=== PATIENT | male | born 1945 | race Caucasian/White ===

== ENCOUNTER 2019-07-31 12:15 | Inpatient (IN) | payer OTHER, SELFPAY ==
[2019-07-29 12:38] VITALS: BMI 29.7
[2019-07-31] VITALS (14 sets, daily range): BP systolic 126–166; BP diastolic 66–95; PULSE 72–94; RESP 8–99; TEMP 36.1–37.3; O2SAT 93–100; BMI 29.5
--- NOTE | 2019-07-31 | DI.RAD.S_ITS ---
PROCEDURE: XR LUMBAR SPINE 2-3V INDICATIONS: L3-4 HEMILAMINECTOMY, L4-L5 TLIF W/ INSTRUMENTATNION TECHNIQUE: 3 views of the lumbar spine were acquired. COMPARISON: [facility], MR, MR LUMBAR SPINE WITHOUT CONTRAST, 07/06/2019, 15:42. FINDINGS: Intraoperative images demonstrating posterior fixation at L4-5. There is trace anterolisthesis of L3 on L4 as well as trace retrolisthesis of L5 on S1. Hardware appears intact. IMPRESSION: Intraoperative L4-5 fusion as above. Dictated by: Rica Martinez M.D. on 07/31/2019 at 17:09 Approved by: Rica Martinez M.D. on 07/31/2019 at 17:09
[2019-07-31] MEDS: LACTATED RINGERS 1,000 ML 42 ML IV ×2 (13:08→16:59)
--- NOTE | 2019-07-31 13:08 | PM.PREOP ---
Pre-operative Note Interval Note History & Physical reviewed/Exam performed by Physician: Yes Changes to H&P: No
[2019-07-31] MEDS: CEFAZOLIN 2 GM/100 ML FROZ.PIGGY IV ×2 (14:20→18:38)
[2019-07-31] MEDS: BUPIVACAINE 0.25% W/ EPI 30 ML VIAL INJ (15:00)
[2019-07-31] MEDS: BUPIVACAINE LIPOSOME 266 MG/20 ML VIAL INJ (15:01)
--- NOTE | 2019-07-31 15:04 | SUR.OPER ---
Prone on spine table, head in foam head support, padded chest and pelvic supports, gel pad at knees, lower legs supported by pillows; nipples, genitalia and toes free of pressure, arms secured on foam padded arm boards at <90 degrees abduction. Tape over blanket at thigh secured to table.
--- NOTE | 2019-07-31 16:57 | P.OP_ITS ---
Operative Date/Time/Diagnoses Date of procedure: 07/31/19 Time of procedure: 14:18 Pre-op diagnosis: 1. L4-5 spinal stenosis 2. L4-5 synvial cyst 3. L3-4 spinal stenosis Post-op diagnosis: same Procedure & Clinicians Procedure: 1. L4-5 Postero-lateral and posterior interbody fusion 2. L4-5 interbody cage placement. 3. L4-5 decompressive laminectomy with bilateral facetecomies 4. L4-5 Posterior non-segmental instrumentation 5. L3-4 hemilaminectomy 6. [place] of bone marrow from iliac crest 7. Utilization of microsurgical technique and operating microscope Same procedure as scheduled: Yes Indications: Patient has been having chronic back pain and worsening lumbar radiculopathy. Patient failed multiple conservative management with worsening pain weakness and numbness in his lower extremity. Patient has been having difficulty performing activity of daily living. After discussing risks benefits of treatment options, patient elected proceed with surgery. Surgeon: Sekou Guzmán [employer] Professor: Cindy Jimenez Click Yes if Unassisted: No Anesthesia Type: General Operative Notes Closure Type: primary Specimen(s): none sent Prosthetic devices, grafts, tissues, transplants, or devices: GLobus revolve screws, Rise cages Applied: catheter Estimated Blood Loss (mL): 50 Blood products transfused: none Procedure in detail: Patient was seen in the preoperative area. Risks and benefits of the surgery was discussed with the patient. Informed consent was obtained from the patient and placed in the chart. Surgical site was marked. Patient was taken to the operative room. General anesthesia was administered. Prophylactic antibiotic was given to the patient less than 30 min before the incision was made. Patient was placed into a prone position on the Bam table. Patient's back was then prepped and draped in the sterile fashion. Time- out was performed at this time. Using AP and lateral C-arm imaging the interval between L3-4 L4-5 was identified and marked on patient's back. A 2 inch incision 2 in from midline was made on the right side first. The fascia was incised in line with skin incision. Globus MARS retractors was placed inside the incision and docked onto the L4 lamina. Using microsurgical technique and operating microscope, a L4 laminectomy and L4- 5 facetectomy was performed using a Kerrison rongeur. A large synovial cyst was identified under the ligamentum flavum. The cyst was excised in its entirety using a Kerrison rongeur. The cyst was found to be filled with synovial fluid with no any signs of infection or malignant origin. Laminectomy and total facetectomy was required to fully excise the cyst. After the laminectomy facetectomy and cyst excision the L4-5 level was found to be grossly unstable requiring a fusion procedure at the same time. The disc space at L4-5 was identified. And a total diskectomy was performed at L4-5 level. The endplates were decorticated using a rasp and shaver. The total diskectomy and decortication was performed at L4-5 level in order to to accomplish a L4-5 fusion. The local bone from the laminectomy and facetectomy was saved for local bone grafting. After the total diskectomy and decortication was completed, BIO4 bone graft material was combined with local bone that was harvested earlier. At this time, a separate skin is incision was made over the iliac crest. A Jamshidi needle was inserted into the iliac crest through a separate skin incision. 5 cc of bone marrow aspiration was obtained through the separate skin incision using a Jamshidi needle from the iliac crest. The bone marrow aspiration was combined with local bone and the BIO4 bone grafting material. The bone grafting material was placed into the L4-5 interbody space along with a expandable cage. The cage was expanded to its maximum height using the torque limiting screwdriver. At this time the MARS retractor was redirected over the L3 lamina. Using microsurgical technique and operating microscope, a L3-4 heminectomy was performed using the Kerrison rongeur. The ligamentum flavum was also resected at the side of the hemilaminectomy for further decompression of the epidural space. At this time a mirror image incision was made on the left side. The fascia was incised in line with the skin incision. Globus MARS retractor was inserted and docked onto the L4-5 posterolateral gutter. Using the power drill, posterior- lateral decortication was performed at L4-5 level until bleeding cortical bone was identified. The remaining bone grafting material was placed into the L4-5 posterior lateral gutter he order to accomplish posterolateral fusion at the L4- 5 level. Using the double C-arm technique, pedicle screws were placed into the L4 and L5 pedicles bilaterally. This was done by placing the Jamshidi needle into the pedicles, then placing the guidewires over the Jamshidi needle, and finally placing the cannulated screws over the guidewires bilaterally. After the pedicle screws were placed, 2 titanium rods was locked into the heads of the pedicle screws using locking caps and torque limiting screwdriver. After all the hardware was placed, and confirmed with AP and lateral C-arm imaging, the wound was then irrigated with sterile normal saline and packed with Ray-Regino gauze for 3 min to accomplish hemostasis. After the gauze was removed the deep fascia was closed with #1 Vicryl suture. The subcutaneous layer was closed with 2-0 Vicryl. The skin was closed with skin santa. Patient tolerated the procedure well. There were no complications. Complications: none Post-operative Condition: stable Disposition: PACU Plan for aftercare: Admit to inpatient hospital
[2019-07-31] MEDS: HYDROMORPHONE 2 MG INJ 0.5 MG IV (17:10)
--- NOTE | 2019-07-31 17:29 | SUR.PHASEI ---
Pt arrived to PACU restless and fidgety, medicated by dr ye with fentanyl and dilaudid. Medicated by me one additional time, pt then relaxed and no longer c/o pain when asked. Report called to Zac and pt transported up to room 211. Dressing to back remained c/d/i.
--- NOTE | 2019-07-31 18:04 | SUR.PHASEI ---
Pt left in stable condition with Zac.
[2019-07-31] MEDS: SODIUM CHLORIDE 0.9% 1,000 ML 100 ML IV (18:38)
[2019-07-31] MEDS: SENNOSIDES 8.6 MG TABLET 17.2 MG PO (20:30)
[2019-07-31] MEDS: DOCUSATE 100 MG CAPSULE PO (20:30)
[2019-07-31] MEDS: LISINOPRIL 20 MG TABLET PO (20:30)
[2019-07-31] MEDS: ACETAMINOPHEN 325 MG TABLET 650 MG PO (20:31)
[2019-08-01 00:10] VITALS: BP 155/96; PULSE 87; RESP 18; TEMP 36.6; O2SAT 97
[2019-08-01] MEDS: SODIUM CHLORIDE 0.9% 1,000 ML 100 ML IV (00:16)
--- NOTE | 2019-08-01 00:51 | PC.NURSE ---
TO Dr Sethi Order Ambian 10mg as a sleep aid per pt request
[2019-08-01] MEDS: ZOLPIDEM 5 MG TABLET 10 MG PO (01:27)
[2019-08-01] MEDS: CEFAZOLIN 2 GM/100 ML FROZ.PIGGY IV ×2 (03:13→11:36)
[2019-08-01 04:53] VITALS: BP 146/88; PULSE 79; RESP 18; TEMP 37.1; O2SAT 99
[2019-08-01] MEDS: LEVOTHYROXINE 75 MCG TABLET PO (06:28)
[2019-08-01] MEDS: LEVOTHYROXINE 100 MCG TABLET PO (06:28)
[2019-08-01 08:00] VITALS: BP 138/77; PULSE 78; RESP 14; TEMP 36.6; O2SAT 97
[2019-08-01] MEDS: ATORVASTATIN 20 MG TABLET PO (09:06)
[2019-08-01] MEDS: DOCUSATE 100 MG CAPSULE PO (09:06)
[2019-08-01] MEDS: LISINOPRIL 20 MG TABLET PO (09:06)
--- NOTE | 2019-08-01 10:15 | CM.DANOTE ---
DCP: Case received, EMR reviewed and met with patient. Introduced self and role. Was able to converse with patient and spouse, Piyush, at bedside, regarding baseline health information. DCP template/assessment completed with information currently available. Patient is a 73 year old female who admitted yesterday afternoon to the care of the orthopedic team. PCP: Dr. Thompson Payer: confirmed: [employer]. Patient came to the hospital for a surgical procedure. He had L4-5 postero-lateral interbody fusion. Patient has had history of chronic back pain, secondary to spinal stenosis. Met briefly with patient in his room. , Piyush, was at bedside. Patient alert and oriented. Resides in [facility] with his spouse, Piyush. He is hopeful to work with physical therapy soon, so he can go home. Patient was sitting up in his bed when this shutdown planner arrived. P: DCP to continue to follow closely. He will be working with physical therapy team today. Patient should be able to go home when he is medically stable and cleared by P.T. Meme Allen RN/Modeling Instructor
--- NOTE | 2019-08-01 10:25 | PT.IIE ---
Current Diagnoses Foot drop, right foot (07/31/19) Spinal stenosis, lumbar region with neurogenic claudication (07/31/19) Other bursal cyst, other site (07/31/19) Postlaminectomy syndrome, not elsewhere classified (07/31/19) Surgery Performed Operation Date: 07/31/19 13:45 Actual Procedures p L3-4 hemilaminectomy, L4-5 TLIF w/ posterior instrumentation - Sekou Guzmán MD Surgical History (Last Updated 07/29/19 @ 13:25 by Vandana Leiva RN) H/O vasectomy (Acute) History of bilateral carpal tunnel release (Acute) History of colonoscopy with polypectomy (Acute 11/07/18) Hx of cholecystectomy (Acute 08/22/16) Hx of eye surgery (Acute) Hx of laminectomy (Acute ~2014) Hx of tonsillectomy (Acute ~1972) Medical History (Last Updated 07/29/19 @ 13:22 by Vandana Leiva RN) Abnormal LFTs (liver function tests) (Acute) Aortic valve stenosis (Acute) Arthritis (Acute) Atherosclerosis of [place] coronary artery of [place] heart with angina pectoris (Acute) Eczema (Acute) Gout (Acute) HTN (hypertension) (Acute) IFG (impaired fasting glucose) (Acute) Mild coronary artery disease (Acute) Mixed hyperlipidemia (Acute) Pedal edema (Acute) Sciatica (Acute) Thyroid disease (Acute) Physical Therapy Inpatient Evaluation/Re-Eval M1 PT/OT-IP Prior Functional Status Start: 08/01/19 08:52 Freq: NEEDED Status: Active Protocol: Document 08/01/19 10:25 DLM (Rec: 08/01/19 10:41 DL [id number]) Medical Review Prior Functional Status Medical History Reviewed Yes Diet/Fluid Consistency Regular Communication WNL Mobility and Gait Independent without device, community distances Activities of Daily Living and IADL's Independent Social History Household Members spouse Living Arrangements House Number of Floors (Floors) Two Floors Home Environment Standard Height Toilet Home Equipment Straight Cane M2 PT-IP Current Condition Start: 08/01/19 08:52 Freq: NEEDED Status: Active Protocol: Document 08/01/19 10:25 DLM (Rec: 08/01/19 10:41 DLM [id number]) Physical Therapy Current Condition Current Condition Evaluation Date 08/01/19 Treatment Diagnosis L4-5 TLIF with cage, L3-4 hemilaminectomy, impaired gait /mobility Onset Date 07/31/19 Precautions Lumbar Precautions Log Roll,No Twisting,Limit Bending,Lifting Restriction of 10 lbs,Gait Belt above Incisional Area M3 PT-IP Subjective Start: 08/01/19 08:52 Freq: NEEDED Status: Active Protocol: Document 08/01/19 10:25 DLM (Rec: 08/01/19 10:41 [facility] [id number]) Subjective Physical Therapy Visit Type Type Initial Evaluation Visit Start Time 09:45 Visit Stop Time 10:25 Total Visit Minutes 40 Number of DOOR CLAMPER Visits 0 Physical Therapy Visit Comments Patient Comments He has no pain today, no LE symptoms now or before surgery Patient Goals Discharge home with his to help Therapy Pain Assessment Pain When Pain Assessed During Mobility Pain Present Pain Present Denied Pain M4 PT-IP Mobility and Gait Start: 08/01/19 08:52 Freq: NEEDED Status: Active Protocol: Document 08/01/19 10:25 DLM (Rec: 08/01/19 10:41 [facility] [id number]) PT-Bed Mobility Assessment Rolling Type of Rolling Log Rolling Level of Assist Standby Assistance Supine to Sit Supine to Sit Independent Sit to Supine Sit to Supine Independent Scooting Scooting to Edge of Bed Independent PT-Transfer Assessment Sit to and From Stand Sit to and from Stand Independent,Use of Upper Extremities Equipment Transfer Assistive Device Gait Belt,Front Wheeled Walker Transfers Transfer Technique Stand Step Pivot Transfer Ability Level of Assist Independent,Use of Upper Extremities Comments Mobility Comments educated pt in spine precautions during mobility Gait Assessment Gait Gait Assistance Required: Standby Assistance Distance (Feet) 200 Assistive Devices Assistive Device Gait Belt,Front Wheeled Walker Factors Limiting Gait Function Factors Limiting Gait Function Decreased Activity Tolerance Comments Gait Comments good posture during gait, education on use of FWW Stair Climbing Assessment Evaluation Level of Assist On Stairs Standby Assistance Devices Stair Climbing Assistive Devices Left Railing Technique/Endurance Stair Climbing Direction Ascend and Descend Stair Climbing Technique Step Over Step,Step to Step Number of Steps Climbed 9 Query Text: Comments Stair Climbing Comments no difficulty with stairs PT-Balance Assessment Sitting Balance and Reactions Static Sitting Balance Ability Good Dynamic Sitting Balance Ability Good Standing Balance and Reactions Static Standing Balance Ability Good Dynamic Standing Balance Ability Good Device Used FWW M5 PT-IP Objective Assessments Start: 08/01/19 08:52 Freq: NEEDED Status: Active Protocol: Document 08/01/19 10:25 DLM (Rec: 08/01/19 10:41 DL [id number]) Orientation Orientation/Cognition Level of Alertness Alert Orientation Name,Age,Birthday,Month,Date, Year,Day of Week,Place, Situation Language Function Ability No Deficits Noted Safety Awareness Understands Safety Issues Memory Description No Deficits Noted Gross Range of Motion Upper Extremity ROM Assessment Within Functional Limits Lower Extremity ROM Assessment Within Functional Limits Strength Upper Extremity Strength Assessment Within Functional Limits Lower Extremity Strength Assessment Within Functional Limits Coordination Assessment Gross Coordination Gross Coordination WNL Sensation Assessment Sensation Gross Sensation WNL Muscle Tone Muscle Tone WNL Yes M6 PT-IP Treatment Start: 08/01/19 08:52 Freq: NEEDED Status: Active Protocol: Document 08/01/19 10:25 DLM (Rec: 08/01/19 10:41 DL [id number]) Physical Therapy Treatment Exercises Exercises Ankle Pumps Education Education Provided Post-Op Packet,Safety M7 PT-IP Assessment and Plan Start: 08/01/19 08:52 Freq: NEEDED Status: Active Protocol: Document 08/01/19 10:25 DLM (Rec: 08/01/19 10:41 DL [id number]) PT Summary Assessment and Plan Potential Rehabilitation Potential Good Status of Condition at Evaluation Evolving Summary Impairments Pain,ROM,Strength,Balance,Bed Mobility,Transfers,Gait, Activity Tolerance Progress Towards Goals Safe For Discharge Assessment Summary Mr Peñaloza is alert and tolerating mobility well post- op. He reports no pain at this time. Pt feels safer using the fWW for gait post-op to manage his back. Will assist him in obtaining a FWW for home use before discharge. His is present this visit and participate in training. Plan is for pt to see OT today . He appears safe to discharge with his when medically cleared. Goals Other Goals cleared for discharge home today if medically stable Frequency of Treatment Frequency Of Treatment Discharge Treatment Plan Other Recommendations and Next Treatment post-op education completed Focus this visit Recommendations To Nursing Amount of Assist Needed Standby Assistance Discharge Recommendations PT Discharge Recommendations Home with Assistance Equipment Needed for Home Before FWW, requested script Discharge
--- NOTE | 2019-08-01 11:26 | P.DS_ITS ---
History of Present Illness History of Present Illness Date Patient Seen: 08/01/19 Time Patient Seen: 11:26 Chief complaint: [id number] Narrative: Patient denies pain. No fever chills. No nausea vomiting. Patient is mobilizing with use of walker for assistance. Patient's is home and available to assist him. Patient feels well enough to go home today. Discharge Providers Provider Date of admission: 07/31/19 12:15 Discharge Date: 08/01/19 Primary care physician: Otis Thompson MD Consults: 07/30/19 08:39 Consult to Anesthesiology Routine Comment: Consulting Provider: Anesthesiologist Reason for consultation: Surgeon requested re: Cardiac 07/31/19 17:56 Consult to Occupational Therapy Evaluate & Treat Comment: Physician Instructions: Evaluate and treat Consult to Physical Therapy Evaluate & Treat Comment: Physician Instructions: Evaluate and Treat Discharge provider: Ousmane Frank PA-C Summary Hospital Course Discharge Diagnosis: Pre-op diagnosis: 1. L4-5 spinal stenosis 2. L4-5 synvial cyst 3. L3-4 spinal stenosis Post-op diagnosis: same Procedure & Clinicians Procedure: 1. L4-5 Postero-lateral and posterior interbody fusion 2. L4-5 interbody cage placement. 3. L4-5 decompressive laminectomy with bilateral facetecomies 4. L4-5 Posterior non-segmental instrumentation 5. L3-4 hemilaminectomy 6. [place] of bone marrow from iliac crest 7. Utilization of microsurgical technique and operating microscope Hospital Course: [address] [address] Operative Note Patient: Alexandr Peñaloza#: [id number] : 7Acct:[id number] Age/Sex: 73 / M Date of Service: 07/31/19 Provider: Sekou Guzmán MD Operative Date/Time/Diagnoses Date of procedure: 07/31/19 Time of procedure: 14:18 Pre-op diagnosis: 1. L4-5 spinal stenosis 2. L4-5 synvial cyst 3. L3-4 spinal stenosis Post-op diagnosis: same Procedure & Clinicians Procedure: 1. L4-5 Postero-lateral and posterior interbody fusion 2. L4-5 interbody cage placement. 3. L4-5 decompressive laminectomy with bilateral facetecomies 4. L4-5 Posterior non-segmental instrumentation 5. L3-4 hemilaminectomy 6. [place] of bone marrow from iliac crest 7. Utilization of microsurgical technique and operating microscope Same procedure as scheduled: Yes Indications: Patient has been having chronic back pain and worsening lumbar radiculopathy. Patient failed multiple conservative management with worsening pain weakness and numbness in his lower extremity. Patient has been having difficulty performing activity of daily living. After discussing risks benefits of treatment options, patient elected proceed with surgery. Surgeon: Sekou Guzmán Ad Clerk: Cindy Jimenez Click Yes if Unassisted: No Anesthesia Type: General Operative Notes Closure Type: primary Specimen(s): none sent Prosthetic devices, grafts, tissues, transplants, or devices: GLobus revolve screws, Rise cages Applied: catheter Estimated Blood Loss (mL): 50 Blood products transfused: none Patient admitted to the hospital for the above-mentioned procedure. Consented for the same. Patient taken to the operating room and underwent lumbar fusion. Patient back in his room recovering well as in stable condition. Patient mobilizing with use of walker. Patient feel safe and ready to be discharged home today. Patient has his home to assist him. Patient will be discharged home today. Exam Vital Signs (past 8 hours): - 08/01/19 04:53 08/01/19 08:00 Temperature 98.8 F 97.8 F Pulse Rate 79 78 Respiratory Rate 18 14 Blood Pressure 146/88 H 138/77 Pulse Oximetry 99 97 Oxygen Delivery Method Room Air Oxygen Flow Rate 0 Narrative Exam Narrative: 73-year-old male walking in room with therapy and walker. Patient in no apparent distress. Dressing is clean and dry. Discharge Plan Discharge Plan Patient Disposition: Home Discharge comment: DC home after PT Discharge Med Rec/Prescriptions Prescriptions: New hydroxyzine pamoate 25 mg Capsule 25 mg PO Q4HR PRN (Reason: Nausea And Vomiting) Qty: 30 RF: 1 oxycodone 5 mg tablet 5 mg PO Q4-6H PRN (Reason: pain) Qty: 40 RF: 0 Continued levothyroxine 175 mcg Tablet 175 mcg PO DAILY RF: 0 atorvastatin 20 mg Tablet 20 mg PO QAM RF: 0 lisinopril 20 mg Tablet 20 mg PO BID RF: 0 acetaminophen 500 mg Capsule 1,000 mg PO BID-TID RF: 0 Discontinued aspirin 81 mg Tablet,Delayed Release (Dr/Ec) 81 mg PO DAILY RF: 0 Follow up/Referrals: Otis Thompson MD [Primary Care Provider] - Provider Discharge Instructions Diet: Diet as Tolerated Activity: limit bending, twisting, lifting Cold/Heat Therapy: ice as needed Other treatments: walker Skin/Wound/Dressing Care Report to your healthcare provider any signs of infection, such as:: chills, fever Dressing: keep clean and dry Visit Report/Discharge Packet Instructions: DI for Constipation, How to Prevent Falls, DI for Transforaminal Lumbar Interbody Fusion Discharge Data Primary Care Provider: Otis Thompson Quality VTE Deep Vein Thrombosis/Pulmonary Embolism Present on Admission: No
--- NOTE | 2019-08-01 12:20 | OT.IP.EVAL ---
Current Diagnoses Foot drop, right foot (07/31/19) Spinal stenosis, lumbar region with neurogenic claudication (07/31/19) Other bursal cyst, other site (07/31/19) Postlaminectomy syndrome, not elsewhere classified (07/31/19) Surgery Performed Operation Date: 07/31/19 13:45 Actual Procedures p L3-4 hemilaminectomy, L4-5 TLIF w/ posterior instrumentation - Sekou Guzmán MD Past Medical History (Last Updated 07/29/19 @ 13:22 by Vandana Leiva RN) Abnormal LFTs (liver function tests) (Acute) Aortic valve stenosis (Acute) Arthritis (Acute) Atherosclerosis of [place] coronary artery of [place] heart with angina pectoris (Acute) Eczema (Acute) Gout (Acute) HTN (hypertension) (Acute) IFG (impaired fasting glucose) (Acute) Mild coronary artery disease (Acute) Mixed hyperlipidemia (Acute) Pedal edema (Acute) Sciatica (Acute) Thyroid disease (Acute) Surgical History (Last Updated 07/29/19 @ 13:25 by Vandana Leiva RN) H/O vasectomy (Acute) History of bilateral carpal tunnel release (Acute) History of colonoscopy with polypectomy (Acute 11/07/18) Hx of cholecystectomy (Acute 08/22/16) Hx of eye surgery (Acute) Hx of laminectomy (Acute ~2014) Hx of tonsillectomy (Acute ~1972) Occupational Therapy Inpatient Evaluation/Re-Eval M1 PT/OT-IP Prior Functional Status Start: 08/01/19 08:52 Freq: NEEDED Status: Active Protocol: Document 08/01/19 10:25 DLM (Rec: 08/01/19 10:41 DLM [id number]) Medical Review Prior Functional Status Medical History Reviewed Yes Diet/Fluid Consistency Regular Communication WNL Mobility and Gait Independent without device, community distances Activities of Daily Living and IADL's Independent Social History Household Members spouse Living Arrangements House Number of Floors (Floors) Two Floors Home Environment Standard Height Toilet Home Equipment Straight Cane M1 PT/OT-IP Prior Functional Status Start: 08/01/19 12:06 Freq: NEEDED Status: Active Protocol: Document 08/01/19 12:06 CGR (Rec: 08/01/19 12:20 CGR [email or web address]) Medical Review Prior Functional Status Medical History Reviewed Yes Diet/Fluid Consistency Regular Communication WNL Mobility and Gait Independent without device, community distances Activities of Daily Living and IADL's Independent Social History Household Members spouse Living Arrangements House Number of Floors (Floors) Two Floors Number of Stairs To Enter/Railing? 2 steps to enter without rail. A flight of stairs to second floor. 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 M2 OT-IP Current Condition Start: 08/01/19 12:06 Freq: Status: Active Protocol: Document 08/01/19 12:06 CGR (Rec: 08/01/19 12:20 CGR [email or web address]) Occupational Therapy Current Condition Current Condition Evaluation Date 08/01/19 Treatment Diagnosis L3-5 TLIF Post Operative Precautions Lumbar Precautions Log Roll,No Twisting,Limit Bending,Lifting Restriction of 10 lbs,Gait Belt above Incisional Area M3 OT- IP Subjective and Pain Start: 08/01/19 12:06 Freq: Status: Active Protocol: Document 08/01/19 12:06 CGR (Rec: 08/01/19 12:20 CGR [email or web address]) OT- Subjective Occupational Therapy Visit Type Type Initial Evaluation Visit Start Time 11:05 Visit Stop Time 11:55 Total Visit Minutes 50 Notes Pt's present throughout session. Occupational Therapy Visit Comments Patient Comments I am hoping to go home today. OT Pain Assessment Pain When Pain Assessed During Mobility Pain Present Pain Present Denied Pain M4 OT- IP ADL's Start: 08/01/19 12:06 Freq: Status: Active Protocol: Document 08/01/19 12:06 CGR (Rec: 08/01/19 12:20 CGR [email or web address]) OT [id number] Comments OT Self-Feeding Comments Not meal time OT ADL-Grooming General Evaluation Grooming Ability Independent Areas Needing Assistance Face Washing Comments OT Grooming Comments at sink OT ADL-Oral Care Comments Oral Care Comments Pt declined, already performed OT ADL-Dressing General Eval Upper Body Dressing Ability Independent Lower Body Dressing Ability Standby Assistance Areas Needing Assistance Retrieving/Set-up of Clothing, Pull-Over Shirt,Underpants/ Brief,Pants/Shorts,Socks,Shoes Assistive Devices Dressing Assistive Devices Dressing Stick,Long Handled Shoe Horn,Pilot Plant Supervisor,Sock Aid Comments OT Dressing Comments Pt first educated on dressing then performed with SBA using equipment. OT ADL-Toileting General Evaluation Toileting Ability Independent Comments OT Toileting Comments educated on safety and use of walker for toileting. OT ADL-Bathing Comments OT Bathing Comments Not performed but educated on home safety. M5 OT- IP IADL's Start: 08/01/19 12:06 Freq: Status: Active Protocol: Document 08/01/19 12:06 CGR (Rec: 08/01/19 12:20 CGR [email or web address]) OT-Instrumental Activities of Daily Living Deficits IADL Deficits Identified No Deficits Home Safety Awareness Awareness of Need for Assistance at Home Good Awareness Ability to Problem Solve Emergency Able to Problem Solve Situations M6 OT- IP Functional Cognition Start: 08/01/19 12:06 Freq: Status: Active Protocol: Document 08/01/19 12:06 CGR (Rec: 08/01/19 12:20 CGR [email or web address]) Cognitive Factors Limiting Selfcare Function Cognitive Ability Level of Alertness Alert Patient Orientation Name,Age,Birthday,Month,Date, Year,Day of Week,Place, Situation Attention Span Ability Capable of Focused Attention, Capable of Sustained Attention Ability to Follow Commands Able to Follow Multi-Step Commands Memory Description No Deficits Noted Safety Awareness No Deficits Noted Problem Solving Ability No deficits Noted Executive Function Ability No Deficits Noted Abstract Thinking Ability No Deficits Noted OT- Vision and Hearing OT- Hearing Assessment OT- Hearing Assessment WFL OT- Vision Assessment Visual Acuity WFL,Glasses All The Time Visual Attentiveness WFL Occular Pursuits WFL Visual Convergence WFL Visual Florian WFL Vision Assessment Comments Pt has nastagmus with tracking but is aware. Wears bifocals all the time. M7 OT- IP Mobility and Balance Start: 08/01/19 12:06 Freq: Status: Active Protocol: Document 08/01/19 12:06 CGR (Rec: 08/01/19 12:20 CGR [email or web address]) OT-Transfer Assessment Sit to and From Stand Sit to and from Stand Independent Transfers Transfer Ability Independent Technique Transfer Destination Chair,Toilet Transfer Technique Stand Step Pivot Devices Transfer Assistive Devices Front Wheeled Walker OT- Gait Assessment Gait Gait Assistance Required: Independent Assistive Devices Assistive Device Front Wheeled Walker Comments Gait Ability Comments For mobility within room. OT- Balance Assessment Sitting Balance and Reactions Static Sitting Balance Ability Normal Dynamic Sitting Balance Ability Normal M8 OT- IP Objective Assessments Start: 08/01/19 12:06 Freq: Status: Active Protocol: Document 08/01/19 12:06 CGR (Rec: 08/01/19 12:20 CGR [email or web address]) OT Gross Range of Motion Upper Extremity Range of Motion Assessment Within Functional Limits OT Strength Upper Extremity Strength Assessment Within Functional Limits OT- Coordination Assessment Upper Extremity Finger to Nose Test Within Functional Limits Finger Tapping Test Within Functional Limits OT-Muscle Tone Assessment Muscle Tone WNL Yes OT Sensation Assessment Edema Edema Absent M9 OT- IP Assessment and Plan Start: 08/01/19 12:06 Freq: Status: Active Protocol: Document 08/01/19 12:06 CGR (Rec: 08/01/19 12:20 CGR [email or web address]) OT Summary Assessment and Plan Potential Rehabilitation Potential Excellent Analytic Complexity at Evaluation Low Summary OT Impairments Dressing,Toileting,Bathing, Toilet Transfers,Shower Transfers Progress Towards Goals Progressing Toward Goals,Safe For Discharge Assessment Summary Pt presents as a low complexity evaluation s/p lumbar surgery. Pt educated on home safety and back precautions. Pt has necessary equipment for home mobility and transfers and ordered a hip kit for dressing while this senior copywriter was present in the room. Pt safe for discharge home from OT perspective. Frequency of Treatment Frequency Of Treatment Discharge Discharge Recommendations OT Discharge Recommendations Home with Assistance Home Equipment Needs Pt has all necessary equipment .
--- NOTE | 2019-08-01 12:36 | PT.IPTN ---
Current Diagnoses Foot drop, right foot (07/31/19) Spinal stenosis, lumbar region with neurogenic claudication (07/31/19) Other bursal cyst, other site (07/31/19) Postlaminectomy syndrome, not elsewhere classified (07/31/19) Surgery Performed Operation Date: 07/31/19 13:45 Actual Procedures p L3-4 hemilaminectomy, L4-5 TLIF w/ posterior instrumentation - Sekou Guzmán MD Physical Therapy Treatment Note M2 PT-IP Current Condition Start: 08/01/19 08:52 Freq: NEEDED Status: Active Protocol: Document 08/01/19 10:25 DLM (Rec: 08/01/19 10:41 DLM [id number]) Physical Therapy Current Condition Current Condition Evaluation Date 08/01/19 Treatment Diagnosis L4-5 TLIF with cage, L3-4 hemilaminectomy, impaired gait /mobility Onset Date 07/31/19 Precautions Lumbar Precautions Log Roll,No Twisting,Limit Bending,Lifting Restriction of 10 lbs,Gait Belt above Incisional Area Equipment Type and Company FWW issued for home use from [employer], adjusted for pt and glide caps placed Goals Other Goals cleared for discharge home today if medically stable Frequency of Treatment Frequency Of Treatment Discharge
--- NOTE | 2019-08-01 12:59 | PC.NURSE ---
Discharge: Pt feels ready to d/c home. Spouse is here and listened to d/c instructions as well. Seen by PT/OT. Given their final instructions. Seen by PA and received d/c instructions from him. Reviewed d/c instructions for falls prevention, surgery, and constipation. Questions answered. Rx given. Pt has had no need for anything for pain but is aware his med will wear off and he may need something later. Pt received his last dose of antibiotics. D/c home via auto w/spouse.
== END 2019-08-01 12:30 | disposition home or self-care (01) | DRG 455 ==
PROVIDERS: Admitting Provider Orthopaedic Surgery Orthopaedic Surgery of the Spine; PCP Internal Medicine; Visit Provider Orthopaedic Surgery Orthopaedic Surgery of the Spine
PROC: 0SG00AJ Fusion of Lumbar Vertebral Joint with Interbody Fusion Device, Posterior Approach, Anterior Column, Open Approach (ICD-10-PCS; principal; 2019-07-31 13:45)
DX: M48.062 Spinal stenosis, lumbar region with neurogenic claudication (principal); M71.38 Other bursal cyst, other site; E78.5 Hyperlipidemia, unspecified; I10 Essential (primary) hypertension; I25.10 Atherosclerotic heart disease of native coronary artery without angina pectoris
CPT/HCPCS: 72100; 76000; 94762; 97162; 97165; 97530; 97535; C1776; C9290; J0330; J0690; J1100; J1170; J1885; J2250; J2405; J2704; J3010